=== PATIENT | female | born 1945 | race Caucasian/White ===

== ENCOUNTER 2019-04-20 10:00 | Outpatient (CLI) | payer OTHER ==
[~2019-04-20 10:00] MED LIST: FOSAMAX70 MG
== END 2019-04-20 10:01 | disposition home or self-care (01) ==
LOC: SONOGRAMA 10:00 → MAMO-SONO 10:15
DX: E04.2 Nontoxic multinodular goiter (principal)

== ENCOUNTER 2020-01-25 12:06 | Emergency (ER) | payer OTHER ==
[~2020-01-25] VITALS: Ht 157.5 cm; Wt 61.7 kg
[2020-01-25] MEDS ORDERED: OSTERA TABLET1 EACH PO (12:16)
[2020-01-25] MEDS ORDERED: NASAL MIST126 ML (12:17)
== END 2020-01-25 16:25 | disposition home or self-care (01) ==
LOC: ER 12:06
DX: S90.31XA Contusion of right foot, initial encounter (principal); X50.1XXA Overexertion from prolonged static or awkward postures, initial encounter; Y93.89 Activity, other specified; Y92.098 Other place in other non-institutional residence as the place of occurrence of the external cause; Y99.8 Other external cause status

== ENCOUNTER → 2020-04-28 06:36 | Outpatient (CLI) | payer OTHER ==
[~2020-04-28 06:36] MED LIST changes: +NASAL MIST126 ML; +OSTERA TABLET1 EACH PO
== END | disposition home or self-care (01) ==
LOC: LAB 06:36
PROVIDERS: ATTEND Orthopaedic Surgery
DX: E55.9 Vitamin D deficiency, unspecified (principal); M85.88 Other specified disorders of bone density and structure, other site; E21.2 Other hyperparathyroidism; E88.89 Other specified metabolic disorders; M81.8 Other osteoporosis without current pathological fracture; E56.1 Deficiency of vitamin K

== ENCOUNTER 2020-04-28 07:13 | Outpatient (CLI) | payer OTHER | END 2020-04-28 07:30 | disposition home or self-care (01) | LOC: SONOGRAMA 07:13 → MAMO-SONO 08:15 | PROVIDERS: ATTEND Internal Medicine Endocrinology, Diabetes & Metabolism | DX: E04.1 Nontoxic single thyroid nodule (principal) ==

== ENCOUNTER 2021-05-04 13:38 | Outpatient (CLI) | payer OTHER | END 2021-05-04 13:46 | disposition home or self-care (01) | LOC: SONOGRAMA 13:38 → MAMO-SONO 13:45 → SONOGRAMA 13:46 | PROVIDERS: ATTEND Internal Medicine Endocrinology, Diabetes & Metabolism | DX: E04.1 Nontoxic single thyroid nodule (principal) ==

== ENCOUNTER 2021-06-29 08:02 | Outpatient (CLI) | payer OTHER | END 2021-06-29 08:05 | disposition home or self-care (01) | LOC: SONOGRAMA 08:02 | PROVIDERS: ATTEND Pathology Anatomic Pathology & Clinical Pathology | DX: D34 Benign neoplasm of thyroid gland (principal); E06.3 Autoimmune thyroiditis ==

== ENCOUNTER 2021-08-07 11:36 | Outpatient (CLI) | payer OTHER | END 2021-08-07 11:38 | disposition home or self-care (01) | LOC: LAB 11:36 | PROVIDERS: ATTEND Radiology Diagnostic Radiology | DX: Z86.73 Personal history of transient ischemic attack (TIA), and cerebral infarction without residual deficits (principal) ==

== ENCOUNTER 2021-08-12 09:08 | Outpatient (CLI) | payer OTHER | END 2021-08-12 09:26 | disposition home or self-care (01) | LOC: MRI 09:08 | PROVIDERS: ATTEND Family Medicine | DX: G93.89 Other specified disorders of brain (principal); Z86.73 Personal history of transient ischemic attack (TIA), and cerebral infarction without residual deficits | CPT/HCPCS: 70553; A9575 ==

== ENCOUNTER 2022-03-16 07:16 | Outpatient (CLI) | payer OTHER | END 2022-03-16 07:18 | disposition home or self-care (01) | LOC: NUCLEAR 07:16 | PROVIDERS: ATTEND Internal Medicine Gastroenterology | DX: G45.1 Carotid artery syndrome (hemispheric) (principal) ==

== ENCOUNTER 2022-03-16 08:24 | Outpatient (CLI) | payer OTHER | END 2022-03-16 08:26 | disposition home or self-care (01) | LOC: SONOGRAMA 08:24 | PROVIDERS: ATTEND Internal Medicine Gastroenterology | DX: R16.0 Hepatomegaly, not elsewhere classified (principal) ==

== ENCOUNTER 2022-04-12 10:37 | Outpatient (CLI) | payer OTHER | END 2022-04-12 10:45 | disposition home or self-care (01) | LOC: SONOGRAMA 10:37 | PROVIDERS: ATTEND Internal Medicine Endocrinology, Diabetes & Metabolism | DX: E04.8 Other specified nontoxic goiter (principal) ==

== ENCOUNTER 2022-07-19 09:43 | Outpatient (CLI) | payer OTHER | END 2022-07-19 12:01 | disposition home or self-care (01) | LOC: MRI 09:43 | PROVIDERS: ATTEND Psychiatry & Neurology Clinical Neurophysiology | DX: M54.16 Radiculopathy, lumbar region (principal) | CPT/HCPCS: 72148 ==

== ENCOUNTER 2023-04-06 09:12 | Outpatient (CLI) | payer OTHER | END 2023-04-06 09:17 | disposition home or self-care (01) | LOC: SONOGRAMA 09:12 | PROVIDERS: ATTEND Internal Medicine Endocrinology, Diabetes & Metabolism | DX: E04.8 Other specified nontoxic goiter (principal) ==

== ENCOUNTER 2023-12-04 06:50 | Emergency (ER) | payer OTHER ==
[~2023-12-04] VITALS: Ht 157.5 cm; Wt 57.2 kg
[2023-12-04] MEDS ORDERED: RESTASIS1 EACH OP (07:54)
== END 2023-12-04 08:43 | disposition home or self-care (01) ==
LOC: ER 06:51
DX: M62.830 Muscle spasm of back (principal); Z91.018 Allergy to other foods
CPT/HCPCS: 96372; 99284; J1885; J2360

== ENCOUNTER 2024-07-04 07:39 | Outpatient (CLI) | payer OTHER ==
[~2024-07-04 07:39] MED LIST changes: +RESTASIS1 EACH OP
== END 2024-07-04 07:47 | disposition home or self-care (01) ==
LOC: SONOGRAMA 07:39
PROVIDERS: ATTEND Internal Medicine Endocrinology, Diabetes & Metabolism
DX: E04.8 Other specified nontoxic goiter (principal)

== ENCOUNTER 2024-08-16 10:30 | Outpatient (CLI) | payer OTHER ==
[~2024-08-16 10:30] MED LIST changes: +METHOCARBAMOL500 MG PO
== END 2024-08-16 10:33 | disposition home or self-care (01) ==
LOC: SONOGRAMA 10:30
PROVIDERS: ATTEND Pathology Anatomic Pathology & Clinical Pathology
DX: D34 Benign neoplasm of thyroid gland (principal); E06.3 Autoimmune thyroiditis; E07.89 Other specified disorders of thyroid; E04.8 Other specified nontoxic goiter

== ENCOUNTER 2024-11-04 06:59 | Emergency (ER) | payer OTHER ==
[~2024-11-04] VITALS: Ht 157.5 cm; Wt 59.0 kg
[2024-11-04] MEDS ORDERED: KETOROLAC TROMETHAMINE 60 MG VIAL IM STA (09:06)
[2024-11-04] MEDS ORDERED: ORPHENADRINE CITRATE 30 MG/ML AMPUL IM STA (09:07)
== END 2024-11-04 13:03 | disposition home or self-care (01) ==
LOC: ER 07:01
DX: S13.8XXA Sprain of joints and ligaments of other parts of neck, initial encounter (principal); X58.XXXA Exposure to other specified factors, initial encounter; Y93.89 Activity, other specified; Y92.89 Other specified places as the place of occurrence of the external cause; Y99.8 Other external cause status; Z91.018 Allergy to other foods; Z88.9 Allergy status to unspecified drugs, medicaments and biological substances
CPT/HCPCS: 72040; 96372; 99283; J1885; J2360

== ENCOUNTER 2025-06-12 09:12 | Outpatient (CLI) | payer OTHER | END 2025-06-12 09:14 | disposition home or self-care (01) | LOC: SONOGRAMA 09:12 | PROVIDERS: ATTEND Family Medicine | DX: M65.222 Calcific tendinitis, left upper arm (principal) ==

== ENCOUNTER 2025-08-15 07:33 | Outpatient (CLI) | payer OTHER | END 2025-08-15 07:35 | disposition home or self-care (01) | LOC: SONOGRAMA 07:33 | PROVIDERS: ATTEND Internal Medicine Endocrinology, Diabetes & Metabolism | DX: E04.8 Other specified nontoxic goiter (principal) ==

== ENCOUNTER 2025-09-03 13:53 | Outpatient (CLI) | payer OTHER | END 2025-09-03 14:08 | disposition home or self-care (01) | LOC: MRI 13:53 | PROVIDERS: ATTEND Specialist | DX: M25.561 Pain in right knee (principal) | CPT/HCPCS: 73721 ==